=== PATIENT | male | born 1950 | race Caucasian/White ===

== ENCOUNTER 2024-04-19 12:29 | Emergency (ER) | payer OTHER ==
--- NOTE | 2024-04-19 13:27 | EDPHYS ---
Physician Documentation [facility] Name: Adrian Muhammad Age: 73 yrs Sex: Male : 1950 Arrival Date: 04/19/2024 Time: 12:29 Bed 10 Private MD: ED Physician Levy Peña HPI: 04/19 13:12 This 73 yrs old Male presents to ER via Ambulatory with complaints of Wound Check. rn 13:12 Patient presents to ED for recheck of: skin excision. The affected area is on the rn scalp. Progress: The patient reports well healing. The patient has not experienced similar symptoms in the past. The patient has not recently seen a physician. Patient reports seeing a publication editor yesterday, had excision of skin lesion on scalp. Had 3 stitches placed, absorbable, comes in today because of very mild bleeding noted at site. Takes baby aspirin. Otherwise feels fine.. Historical: - Allergies: 12:54 Sulfa (Sulfonamide Antibiotics); cm10 - PMHx: 12:54 Hypertensive disorder; cm10 - Immunization history:: Adult Immunizations up to date. - Infectious Disease History:: Denies. - Social history:: Smoking status: Patient denies any tobacco usage or history of. - Family history:: not pertinent. - Hospitalizations: : No recent hospitalization is reported. ROS: 13:21 Constitutional: Negative for fever, chills, and weight loss, Skin: Negative for injury, rn rash, and discoloration Exam: 13:21 Constitutional: This is a well developed, well nourished patient who is awake, alert, rn and in no acute distress. Head/Face: Normocephalic, post excisional wound has very small pinpoint area of venous oozing. Stops with pressure. Vital Signs: 12:52 BP 147 / 66; Pulse 66; Resp 16; Temp 97.4; Pulse Ox 99% on R/A; Weight 104.33 kg; cm10 Height 6 ft. 4 in. ; Pain 0/10; 12:52 Body Mass Index 28.00 (104.33 kg, 193.04 cm) cm10 12:52 Pain Scale: Adult cm10 MDM: 12:42 Patient medically screened. rn 13:21 ED course: I have seen and him recently wound redressed using Surgicel and then rn nonadherent dressing with adhesive dressing on top. Hemostasis achieved. Will discharge home with return precautions. Told him if this does not work will need to return for suture. 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
--- NOTE | 2024-04-19 13:27 | ER ---
Nurse's Notes [facility] Name: Adrian Muhammad Age: 73 yrs Sex: Male : 1950 Arrival Date: 04/19/2024 Time: 12:29 Bed 10 Private MD: Diagnosis: Encounter for change or removal of surgical wound dressing Presentation: 04/19 12:52 Chief complaint: Patient states: Had a "lump" on head removed yesterday in [place] and cm10 is here today to have the dressing changed. Dressing noted to have dry blood. Coronavirus screen: Client denies travel out of the [place] in the last 14 days. At this time, the client does not indicate any symptoms associated with coronavirus-19. Ebola Screen: Patient denies travel to an Ebola-affected area in the 21 days before illness onset. No symptoms or risks identified at this time. Initial Sepsis Screen: Does the patient meet any 2 criteria? No. Patient's initial sepsis screen is negative. Does the patient have a suspected source of infection? No. Patient's initial sepsis screen is negative. Risk Assessment: Do you want to hurt yourself or someone else? Patient reports no desire to harm self or others. Onset of symptoms was April 19, 2024. 12:52 Method Of Arrival: Ambulatory cm10 12:52 Acuity: SARA 4 cm10 Triage Assessment: 12:54 General: Appears in no apparent distress. comfortable, Behavior is calm, cooperative. cm10 Pain: Denies pain. Neuro: No deficits noted. Level of Consciousness is awake, alert, obeys commands, Oriented to person, place, time, situation, Appropriate for age. Derm: Wound noted top of head Wound is Dressing noted to have dry blood on it. Historical: - Allergies: 12:54 Sulfa (Sulfonamide Antibiotics); cm10 - PMHx: 12:54 Hypertensive disorder; cm10 - Immunization history:: Adult Immunizations up to date. - Infectious Disease History:: Denies. - Social history:: Smoking status: Patient denies any tobacco usage or history of. - Family history:: not pertinent. - Hospitalizations: : No recent hospitalization is reported. Screenin:31 Abuse screen: Denies threats or abuse. Nutritional screening: No deficits noted. ap3 Tuberculosis screening: No symptoms or risk factors identified. 13:32 [facility] ED Fall Risk Assessment (Adult) History of falling in the last 3 months, ap3 including since admission No falls in past 3 months (0 pts) Confusion or Disorientation No (0 pts) Intoxicated or Sedated No (0 pts) Impaired Gait No (0 pts) Mobility Assist Device Used No (0 pt) Altered Elimination No (0 pt) Score/Fall Risk Level 0 - 2 = Low Risk Oriented to surroundings, Maintained a safe environment, Educated pt \\T\\ family on fall prevention, incl call for assistance when getting out of bed, Assessed \\T\\ reinforced patient's understanding of fall precautions, Hourly rounding (assess needs \\T\\ fall precautionary measures) done, Used ambulatory aids as needed (educated on \\T\\ assisted with), Used gait belt as appropriate. Vital Signs: 12:52 BP 147 / 66; Pulse 66; Resp 16; Temp 97.4; Pulse Ox 99% on R/A; Weight 104.33 kg; cm10 Height 6 ft. 4 in. ; Pain 0/10; 12:52 Body Mass Index 28.00 (104.33 kg, 193.04 cm) cm10 12:52 Pain Scale: Adult cm10 ED Course: 12:35 Patient arrived in ED. mg5 12:42 Levy Peña MD is Attending Physician. rn 12:54 Triage completed. cm10 12:55 Arm band placed on Patient placed in waiting room. cm10 13:32 No provider procedures requiring assistance completed. Patient did not have IV access ap3 during this emergency room visit. 13:33 Patient has correct armband on for positive identification. Provided Education on: ap3 wound care. Administered Medications: No medications were administered Medication: 13:32 VIS not applicable for this client. ap3 Outcome: 13:26 Discharge ordered by . rn 13:33 Discharged to home ambulatory, ap3 13:33 Condition: good 13:33 Discharge instructions given to patient, Instructed on discharge instructions, follow up and referral plans. wound care, Demonstrated understanding of instructions, follow-up care, wound care, 13:33 Patient left the ED. ap3 Signatures: Levy Peña MD MD rn Prokisch, Amanda, RN RN ap3 Melissa Gaona RN RN 10 Cesilia Anguiano [facility]
[2024-04-19 15:12] VITALS: BP 147/66; TEMP 97.4; O2SAT 99
== END 2024-04-19 13:33 | disposition home or self-care (01) ==
LOC: ER 12:29
DX: Z48.01 Encounter for change or removal of surgical wound dressing (principal)